=== PATIENT | male | born 1995 | race African-American/Black ===

== ENCOUNTER 2019-09-18 10:57 | Emergency (ER) | payer OTHER ==
--- NOTE | 2019-09-18 12:34 | RAD REPORT ---
EXAM DESCRIPTION: Chio Kat (2 Views)09/18/2019 12:23 pm CLINICAL HISTORY: Chest pain COMPARISON: None FINDINGS: The lungs appear clear of acute infiltrate. The heart is mildly enlarged IMPRESSION: No acute abnormalities displayed
[2019-09-18] MEDS ORDERED: KETOROLAC 30 MG/ML INJ ONE (13:03)
--- NOTE | 2019-09-18 14:20 | RAD REPORT ---
EXAM DESCRIPTION: CT - Thorax Wo Con - 09/18/2019 1:33 pm CLINICAL HISTORY: Chest pain status post fall COMPARISON: None TECHNIQUE: Computed axial tomography of the chest was obtained. Contrast was not requested. All CT scans are performed using dose optimization technique as appropriate and may include automated exposure control or mA/KV adjustment according to patient size. FINDINGS: The evaluation of mediastinum, savanah and vessels is limited secondary to lack of IV contras t administration. A mediastinal hematoma is not seen. A pulmonary contusion is not noted A pleural effusion is not present. A pericardial effusion is not seen Postsurgical changes involve the chest. The heart is mildly enlarged. The proximal ascending aorta measures approximately 4.9 centimeters an AP diameter IMPRESSION: No acute traumatic injury involving the chest seen 4.9 centimeter aneurysm ascending aorta
--- NOTE | 2019-09-18 15:22 | RAD REPORT ---
EXAM DESCRIPTION: CT - Angio Aorta For Dissection - 09/18/2019 3:05 pm CLINICAL HISTORY: eval aortachest pain, shortness of breath, abnormal aorta on noncontrast CT study COMPARISON: Noncontrast CT chest September 18 TECHNIQUE: Dynamically enhanced 3 mm thick images of the chest, abdomen, and upper pelvis were obtai marita during administration of approximately 150mL Isovue 370 IV contrast. Sagittal and coronal reconst ruction images were generated using MIP and reviewed. Exam utilizes a protocol to evaluate entire cou rse of the aorta. All CT scans are performed using dose optimization technique as appropriate and may include automated exposure control or mA/KV adjustment according to patient size. FINDINGS: The initial 4 cm of the aorta shows aneurysmal dilatation to 4.9 cm. No aortic valve leafl et abnormality seen. Outflow track to the valve is not abnormally stenotic. The remainder of the asce nding aorta to the arch is not dilated. Arch has a bovine configuration with no great vessel origin s tenosis. From aortic arch to bifurcation in the abdomen the remainder of the aorta shows no dilatatio n. There is no dissection or acute aortic finding. Pulmonary arteries enhance normally. No cardiomegaly, pericardial thickening or pericardial effusion. No mass or infiltrate in the lung parenchyma. No pleural thickening, pleural effusion or pneumothorax . No abnormal mediastinal or hilar mass or lymphadenopathy seen. No chest wall mass or abnormal axillar y lymphadenopathy. Celiac, SMA and renal arteries show no suspicious findings. Solid abdominal viscera and bowel show no significant findings. No mass or abnormal lymphadenopathy. No free air, free fluid or inflammatory stranding. No urinary bladder abnormality. IMPRESSION: Aneurysmal dilatation of the initial 4 cm of the ascending aorta to a maximum diameter o f 4.9 cm. No intimal flap, dissection or other abnormality. Aortic valve leaflets do not appear abnor mal. Remainder the aorta is unremarkable. The remainder of the chest abdomen and pelvis also without signi ficant finding. No other significant findings on chest, abdomen and upper pelvis examination.
--- NOTE | 2019-09-18 15:47 | ER ---
Nurse's Notes [facility] Name: Fausto Bell Jr Age: 24 yrs Sex: Male : 1995 Arrival Date: 09/18/2019 Time: 11:01 Bed 11 Private MD: Diagnosis: Fall on same level from slipping, tripping and stumbling with subsequent striking against other object;Aortic aneurysm of unspecified site, without rupture;Essential (primary) hypertension Presentation: 09/18 11:18 Presenting complaint: Patient states: Fell at work and my left side hurt yesterday but jl7 it's getting worse, it hurts when I breathe in. Transition of care: patient was not received from another setting of care. Onset of symptoms was September 17, 2019. Risk Assessment: Do you want to hurt yourself or someone else? Patient reports no desire to harm self or others. Initial Sepsis Screen: Does the patient meet any 2 criteria? No. Patient's initial sepsis screen is negative. Does the patient have a suspected source of infection? No. Patient's initial sepsis screen is negative. Care prior to arrival: None. 11:18 Method Of Arrival: Ambulatory jl7 11:18 Acuity: AGNIESZKA 4 jl7 Triage Assessment: 11:20 General: Appears in no apparent distress. uncomfortable, Behavior is calm, cooperative, jl7 appropriate for age. Pain: Complains of pain in left side Pain currently is 5 out of 10 on a pain scale. Historical: - Allergies: 11:20 No Known Allergies; jl7 - Home Meds: 11:20 None [Active]; jl7 - PMHx: 11:20 Enlarged heart; jl7 - PSHx: 11:20 open heart sx at 6 mo old; jl7 - Immunization history:: Adult Immunizations not up to date. - Social history:: Smoking status: Patient uses tobacco products, smokes one-half pack cigarettes per day. - Ebola Screening: : No symptoms or risks identified at this time. Screenin:00 Abuse screen: Denies threats or abuse. Denies injuries from another. Nutritional ss screening: No deficits noted. Tuberculosis screening: No symptoms or risk factors identified. Fall Risk IV access (20 points). Total Lemons Fall Scale indicates No Risk (0-24 pts). Assessment: 12:40 General: See triage assessment. Neuro: Level of Consciousness is awake, alert, obeys commands. Cardiovascular: Patient's skin is warm and dry. Respiratory: Airway is patent Respiratory effort is even, unlabored, Respiratory pattern is regular, symmetrical. Derm: Skin is dry, Skin is normal, Skin temperature is warm. 14:00 Reassessment: Patient appears in no apparent distress at this time. No changes from ss previously documented assessment. Patient and/or family updated on plan of care and expected duration. Pain level reassessed. Patient is alert, oriented x 3, equal unlabored respirations, skin warm/dry/pink. 15:00 Reassessment: Patient appears in no apparent distress at this time. No changes from ss previously documented assessment. Patient and/or family updated on plan of care and expected duration. Pain level reassessed. Patient is alert, oriented x 3, equal unlabored respirations, skin warm/dry/pink. Vital Signs: 11:20 BP 140 / 82; Pulse 61; Resp 19 S; Temp 97.9(O); Pulse Ox 100% on R/A; Weight 81.65 kg jl7 (R); Height 5 ft. 8 in. (172.72 cm) (R); Pain 5/10; 15:54 BP 134 / 70; Pulse 54; Resp 16 S; Pulse Ox 100% on R/A; jl7 11:20 Body Mass Index 27.37 (81.65 kg, 172.72 cm) jl7 ED Course: 11:01 Patient arrived in ED. as 11:02 Nita Joshi FNP-C is [facility]. snw 11:02 Britton Patel MD is Attending Physician. snw 11:19 Triage completed. jl7 11:20 Arm band placed on right wrist. Patient placed in waiting room, Patient notified of jl7 wait time. 12:21 Chest Pa And Lat (2 Views) XRAY In Process Unspecified. EDMS 12:34 Emmie Lemon, RN is Primary Nurse. ca1 12:59 Salty Cota, SAVITA is Primary Nurse. jl7 13:00 Patient has correct armband on for positive identification. Call light in reach. ss 13:33 CT Chest Wo Con In Process Unspecified. EDMS 14:55 Inserted saline lock: 20 gauge in right antecubital area, using aseptic technique. ss 15:07 CT Aorta for Dissection In Process Unspecified. EDMS 15:39 Brandon Plummer MD is Referral Physician. snw 15:58 No provider procedures requiring assistance completed. IV discontinued, intact, ss bleeding controlled, No redness/swelling at site. Pressure dressing applied. Administered Medications: 13:39 Not Given (Patient Refused): TORadol 30 mg IM once ss 15:58 Drug: Norvasc 5 mg Route: PO; ss 15:58 Follow up: Response: Medication administered at discharge. Outcome: 15:45 Discharge ordered by . snw 15:58 Discharged to home ambulatory, with family. 15:58 Condition: good 15:58 Discharge instructions given to patient, family, Instructed on discharge instructions, follow up and referral plans. medication usage, Demonstrated understanding of instructions, follow-up care, medications, Prescriptions given X 1. 15:59 Patient left the ED. Signatures: Dispatcher [employer] EDWV Nita Joshi, INSIDE SALES PROFESSIONAL-C INSIDE SALES PROFESSIONAL-CsnMine Huffman Shelby, RN RN Salty Cota RN RN jl7 Emmie Lemon RN RN ca1
--- NOTE | 2019-09-18 15:47 | EDPHYS ---
Physician Documentation [facility] Name: Fausto Bell Jr Age: 24 yrs Sex: Male : 1995 Arrival Date: 09/18/2019 Time: 11:01 Bed 11 Private MD: ED Physician Britton Patel HPI: 09/18 13:21 This 24 yrs old Black Male presents to ER via Ambulatory with complaints of Rib Pain- snw fell yest. 13:21 Onset: The symptoms/episode began/occurred suddenly, yesterday. Associated signs and snw symptoms: Pertinent positives: chest pain. Modifying factors: The patient symptoms are alleviated by nothing, the patient symptoms are aggravated by movement. The patient has not experienced similar symptoms in the past. It is unknown whether or not the patient has recently seen a physician. yesterday pt was walking backward and tripped over a pipe and fell onto opening valve of tank at left lateral chest. Historical: - Allergies: 11:20 No Known Allergies; jl7 - Home Meds: 11:20 None [Active]; jl7 - PMHx: 11:20 Enlarged heart; jl7 - PSHx: 11:20 open heart sx at 6 mo old; jl7 - Immunization history:: Adult Immunizations not up to date. - Social history:: Smoking status: Patient uses tobacco products, smokes one-half pack cigarettes per day. - Ebola Screening: : No symptoms or risks identified at this time. ROS: 13:21 Constitutional: Negative for fever, chills, and weight loss, Eyes: Negative for injury, snw pain, redness, and discharge, ENT: Negative for injury, pain, and discharge, Neck: Negative for injury, pain, and swelling, Cardiovascular: Negative for chest pain, palpitations, and edema, Respiratory: Negative for shortness of breath, cough, wheezing, + left lateral pleuritic chest pain, Abdomen/GI: Negative for abdominal pain, nausea, vomiting, diarrhea, and constipation, Back: Negative for injury and pain, : Negative for injury, bleeding, discharge, and swelling, MS/Extremity: Negative for injury and deformity, Skin: Negative for injury, rash, and discoloration, Neuro: Negative for headache, weakness, numbness, tingling, and seizure, Psych: Negative for depression, anxiety, suicide ideation, homicidal ideation, and hallucinations. Exam: 13:20 Constitutional: This is a well developed, well nourished patient who is awake, alert, snw and in no acute distress. Head/Face: Normocephalic, atraumatic. Eyes: Pupils equal round and reactive to light, extra-ocular motions intact. Lids and lashes normal. Conjunctiva and sclera are non-icteric and not injected. Cornea within normal limits. Periorbital areas with no swelling, redness, or edema. ENT: Nares patent. No nasal discharge, no septal abnormalities noted. Tympanic membranes are normal and external auditory canals are clear. Oropharynx with no redness, swelling, or masses, exudates, or evidence of obstruction, uvula midline. Mucous membranes moist. Neck: Trachea midline, no thyromegaly or masses palpated, and no cervical lymphadenopathy. Supple, full range of motion without nuchal rigidity, or vertebral point tenderness. No Meningismus. Cardiovascular: Regular rate and rhythm with a normal S1 and S2. No gallops, murmurs, or rubs. Normal PMI, no JVD. No pulse deficits. Respiratory: Lungs have equal breath sounds bilaterally, clear to auscultation and percussion. No rales, rhonchi or wheezes noted. No increased work of breathing, no retractions or nasal flaring. Abdomen/GI: Soft, non-tender, with normal bowel sounds. No distension or tympany. No guarding or rebound. No evidence of tenderness throughout. Back: No spinal tenderness. No costovertebral tenderness. Full range of motion. Skin: Warm, dry with normal turgor. Normal color with no rashes, no lesions, and no evidence of cellulitis. MS/ Extremity: Pulses equal, no cyanosis. Neurovascular intact. Full, normal range of motion. Neuro: Awake and alert, GCS 15, oriented to person, place, time, and situation. Cranial nerves II-XII grossly intact. Motor strength 5/5 in all extremities. Sensory grossly intact. Cerebellar exam normal. Normal gait. Psych: Awake, alert, with orientation to person, place and time. Behavior, mood, and affect are within normal limits. 13:20 Chest/axilla: Inspection: normal, Palpation: crepitus, is not appreciated, tenderness, that is moderate, of the left lateral anterior chest. Vital Signs: 11:20 BP 140 / 82; Pulse 61; Resp 19 S; Temp 97.9(O); Pulse Ox 100% on R/A; Weight 81.65 kg jl7 (R); Height 5 ft. 8 in. (172.72 cm) (R); Pain 5/10; 15:54 BP 134 / 70; Pulse 54; Resp 16 S; Pulse Ox 100% on R/A; jl7 11:20 Body Mass Index 27.37 (81.65 kg, 172.72 cm) 7 MDM: 12:48 Patient medically screened. og 15:38 Data reviewed: vital signs, nurses notes. Data interpreted: Pulse oximetry: on room air snw is 100 %. Interpretation: normal. Counseling: I had a detailed discussion with the patient and/or guardian regarding: the historical points, exam findings, and any diagnostic results supporting the discharge/admit diagnosis, the presence of at least one elevated blood pressure reading (>120/80) during this emergency department visit, radiology results, the need for outpatient follow up, to return to the emergency department if symptoms worsen or persist or if there are any questions or concerns that arise at home. Special discussion: Based on the patient's history, exam, and Dx evaluation, there is no indication for emergent intervention or inpatient Tx. It is understood by the patient/guardian that if the Sx's persist or worsen they need to return immediately for re-evaluation. I have referred the patient to see his PCP for further evaluation of high blood pressure. Based on the history and exam findings, there is no indication for further emergent testing or inpatient evaluation. I discussed with the patient/guardian the need to see the lidar analyst for further evaluation of the symptoms. I discussed with the patient/guardian the need to see the primary care provider for further evaluation of the symptoms. 09/18 11:30 Order name: Chest Pa And Lat (2 Views) XRAY; Complete Time: 12:51 snw 09/18 12:58 Order name: CT Chest Wo Con; Complete Time: 14:39 snw 09/18 14:50 Order name: CT Aorta for Dissection; Complete Time: 15:25 snw Administered Medications: 13:39 Not Given (Patient Refused): TORadol 30 mg IM once ss 15:58 Drug: Norvasc 5 mg Route: PO; ss 15:58 Follow up: Response: Medication administered at discharge. Disposition: 17:14 Co-signature as Attending Physician, Britton Patel MD I agree with the assessment and og plan of care. Disposition: 09/18/19 15:45 Discharged to Home. Impression: Fall on same level from slipping, tripping and stumbling with subsequent striking against other object, Aortic aneurysm of unspecified site, without rupture, Essential (primary) hypertension. - Condition is Stable. - Discharge Instructions: Hypertension, How to Take Your Blood Pressure, [id number], Managing Your Hypertension, Form - Blood Pressure Record Sheet. - Prescriptions for Norvasc 5 mg Oral Tablet - take 1 tablet by ORAL route once daily; 20 tablet. - Work release form, Medication Reconciliation Form, Thank You Letter, Antibiotic Education, Prescription Opioid Use form. - Follow up: Emergency Department; When: As needed; Reason: Worsening of condition. Follow up: Brandon Plummer MD; When: 1 week; Reason: Recheck today's complaints, Continuance of care. Signatures: Dispatcher [employer] EDLA Britton Patel MD MD cha Therrien, Shelly, REDUCTION FURNACE OPERATOR HELPER-C REDUCTION FURNACE OPERATOR HELPER-Csnw Hannah Cole RN RN ss Leal, Jahala, RN RN jl7 Corrections: (The following items were deleted from the chart) 15:59 15:45 09/18/2019 15:45 Discharged to Home. Impression: Fall on same level from ss slipping, tripping and stumbling with subsequent striking against other object; Aortic aneurysm of unspecified site, without rupture; Essential (primary) hypertension. Condition is Stable. Forms are Medication Reconciliation Form, Thank You Letter, Antibiotic Education, Prescription Opioid Use. Follow up: Emergency Department; When: As needed; Reason: Worsening of condition. Follow up: Brandon Plummer; When: 1 week; Reason: Recheck today's complaints, Continuance of care. snw
[2019-09-18] MEDS ORDERED: AMLODIPINE 5 MG TAB ONE (15:54)
[2019-09-18 16:09] VITALS: TEMP 97.9; O2SAT 100
[2019-09-18 16:11] VITALS: BP 134/70
== END 2019-09-18 15:59 | disposition home or self-care (01) ==
LOC: ER 10:57
DX: I71.9 Aortic aneurysm of unspecified site, without rupture (principal); I10 Essential (primary) hypertension; W01.198A Fall on same level from slipping, tripping and stumbling with subsequent striking against other object, initial encounter; Y93.89 Activity, other specified; Y92.89 Other specified places as the place of occurrence of the external cause; Y99.8 Other external cause status; F17.210 Nicotine dependence, cigarettes, uncomplicated
CPT/HCPCS: 71046; 71250; 71275; 74175; 99284

== ENCOUNTER 2021-04-22 04:03 | Emergency (ER) | payer OTHER ==
[2021-04-22] MEDS ORDERED: HYDROCODONE/APAP 5/325 MG TAB ONE (05:03)
--- NOTE | 2021-04-22 06:32 | EDPHYS ---
Physician Documentation [facility] Name: Fausto Bell Jr Age: 26 yrs Sex: Male : 1995 Arrival Date: 04/22/2021 Time: 04:06 Bed 17 Private MD: ED Physician Jero Bhandari HPI: 04/22 04:20 This 26 yrs old Black Male presents to ER via Wheelchair with complaints of Ankle mh7 Injury. 04:20 The patient presents with an injury. The complaints affect the left ankle. Onset: The mh7 symptoms/episode began/occurred today. Context: The problem was sustained on a street or driveway, resulted from a mis-step by the patient, stairs, The mechanism of injury is unknown. The patient is unable to bear weight. the patient is able to ambulate, with moderate difficulty. Associated signs and symptoms: Pertinent negatives: calf tenderness, fever, nausea, numbness, rash, tingling, vomiting, warmth, weakness. Modifying factors: The symptoms are alleviated by nothing, the symptoms are aggravated by weight bearing. Severity of symptoms: At their worst the symptoms were moderate, earlier today, in the emergency department the symptoms are unchanged. Historical: - Allergies: 04:34 No Known Allergies; em - PMHx: 04:34 Enlarged Heart; em - PSHx: 04:34 open heart surgery; em - Immunization history:: Adult Immunizations up to date. - Social history:: Smoking status: Patient denies any tobacco usage or history of. ROS: 04:20 Constitutional: Negative for fever, chills, and weight loss, Eyes: Negative for injury, mh7 pain, redness, and discharge, ENT: Negative for injury, pain, and discharge, Neck: Negative for injury, pain, and swelling, Cardiovascular: Negative for chest pain, palpitations, and edema, Respiratory: Negative for shortness of breath, cough, wheezing, and pleuritic chest pain, Abdomen/GI: Negative for abdominal pain, nausea, vomiting, diarrhea, and constipation, Back: Negative for injury and pain, : Negative for injury, bleeding, discharge, and swelling, Skin: Negative for injury, rash, and discoloration, Neuro: Negative for headache, weakness, numbness, tingling, and seizure, Psych: Negative for depression, anxiety, suicide ideation, homicidal ideation, and hallucinations, Allergy/Immunology: Negative for hives, rash, and allergies, Endocrine: Negative for neck swelling, polydipsia, polyuria, polyphagia, and marked weight changes, Hematologic/Lymphatic: Negative for swollen nodes, abnormal bleeding, and unusual bruising. Exam: 04:20 Constitutional: This is a well developed, well nourished patient who is awake, alert, mh7 and in no acute distress. Head/Face: Normocephalic, atraumatic. Skin: Warm, dry with normal turgor. Normal color with no rashes, no lesions, and no evidence of cellulitis. 04:20 Neuro: Awake and alert, GCS 15, oriented to person, place, time, and situation. Cranial nerves II-XII grossly intact. Motor strength 5/5 in all extremities. Sensory grossly intact. Cerebellar exam normal. Normal gait. Psych: Awake, alert, with orientation to person, place and time. Behavior, mood, and affect are within normal limits. 04:20 Musculoskeletal/extremity: Extremities: noted in the left ankle and left foot: pain, tenderness, ROM: limited active range of motion due to pain, in the left ankle and left foot, limited passive range of motion due to pain, in the left ankle and left foot, Circulation is intact in all extremities. Sensation intact. Compartment Syndrome exam of affected extremity: is normal. no numbness, no tingling, no sensation deficit, no palor, no weak pulses, Joints: the left ankle displays painful range of motion, tenderness, Weight bearing: is unable to bear weight, Tendon exam: specific tendon testing normal through active and passive range of motion Vital Signs: 04:32 BP 118 / 62; Pulse 62; Resp 16; Temp 98.7; Pulse Ox 98% on R/A; Weight 88.45 kg; Height em 5 ft. 9 in. (175.26 cm); Pain 8/10; 04:32 Body Mass Index 28.80 (88.45 kg, 175.26 cm) em Procedures: 06:28 Splinting: Splint applied to left ankle and left foot using Orthoglass splint, applied mh7 by tech. nurse. Examined by me, post splint application: neurovascular intact, 2+ distal pulses palpable, brisk capillary refill noted, Patient tolerated well. MDM: 06:28 Differential diagnosis: fracture, sprain, arthritis. Data reviewed: vital signs, nurses [facility] notes, radiologic studies, plain films. Counseling: I had a detailed discussion with the patient and/or guardian regarding: the historical points, exam findings, and any diagnostic results supporting the discharge/admit diagnosis, radiology results, the need for outpatient follow up, a orthopedic surgeon, to return to the emergency department if symptoms worsen or persist or if there are any questions or concerns that arise at home. Response to treatment: the patient's symptoms have markedly improved after treatment. 06:31 Patient medically screened. [facility] 04/22 05:20 Order name: Foot Left 3 View [facility] 04/22 05:20 Order name: Ankle Left 3 View [facility] 04/22 06:03 Order name: Splint - Ankle: Posterior; Complete Time: 06:26 [facility] 04/22 06:03 Order name: Crutches; Complete Time: : [facility] Administered Medications: 04:41 Drug: [place] (HYDROcodone-acetaminophen) 5 mg-325 mg 1 tabs Route: PO; em 06:10 Follow up: Response: No adverse reaction; Marked relief of symptoms; Pain is decreased em Disposition Summary: 04/22/21 06:31 Discharge Ordered Location: Home [facility] Problem: new [facility] Symptoms: have improved [facility] Condition: Stable [facility] Diagnosis - Ankle Sprain, Left 7 - Foot Sprain, Left [facility] Followup: [facility] - With: Private Physician - When: 1 - 2 days - Reason: Worsening of condition, Recheck today's complaints, Continuance of care, Re-evaluation by your physician Followup: [facility] - With: Kervin Raya MD - When: 2 - 3 days - Reason: Worsening of condition, Recheck today's complaints Followup: [facility] - With: Jesus Beach DPM - When: 2 - 3 days - Reason: Worsening of condition, Recheck today's complaints Discharge Instructions: - Discharge Summary Sheet [facility] - Foot Sprain [facility] - Ankle Sprain, [id number] [facility] Forms: - Medication Reconciliation Form [facility] - Thank You Letter [facility] - Antibiotic Education [facility] - Prescription Opioid Use [facility] Prescriptions: - ketorolac 10 mg Oral tablet - take 1 tablet by ORAL route every 6 hours As needed not to exceed 40 mg in [facility] 24hrs; 12 tablet; Refills: 0, Product Selection Permitted Signatures: Dispatcher [facility] Wisam Dela Cruz, SAVITA RN Jero Gallego MD MD mh7
--- NOTE | 2021-04-22 06:32 | ER ---
Nurse's Notes [facility] Name: Fausto Bell Jr Age: 26 yrs Sex: Male : 1995 Arrival Date: 04/22/2021 Time: 04:06 Bed 17 Private MD: Diagnosis: Ankle Sprain, Left;Foot Sprain, Left Presentation: 04/22 04:32 Chief complaint: Patient states: ws drunk and fell down 2 steps, reports pain in the em left ankle, denies other injuries. Coronavirus screen: Client denies travel out of the [place] in the last 14 days. Ebola Screen: Patient negative for fever greater than or equal to 101.5 degrees Fahrenheit, and additional compatible Ebola Virus Disease symptoms Patient denies exposure to infectious person. Patient denies travel to an Ebola-affected area in the 21 days before illness onset. No symptoms or risks identified at this time. Initial Sepsis Screen: Does the patient meet any 2 criteria? No. Patient's initial sepsis screen is negative. Does the patient have a suspected source of infection? No. Patient's initial sepsis screen is negative. Risk Assessment: Do you want to hurt yourself or someone else? Patient reports no desire to harm self or others. Onset of symptoms was April 22, 2021. 04:32 Method Of Arrival: Wheelchair em 04:32 Acuity: AGNIESZKA 4 em Historical: - Allergies: 04:34 No Known Allergies; em - PMHx: 04:34 Enlarged Heart; em - PSHx: 04:34 open heart surgery; em - Immunization history:: Adult Immunizations up to date. - Social history:: Smoking status: Patient denies any tobacco usage or history of. Screenin:34 Abuse screen: Denies threats or abuse. Nutritional screening: No deficits noted. em Tuberculosis screening: No symptoms or risk factors identified. Fall Risk None identified. Assessment: 04:35 General: Appears in no apparent distress. comfortable, Behavior is calm, cooperative, em appropriate for age. Pain: Complains of pain in left lateral malleolus and left medial malleolus Pain currently is 8 out of 10 on a pain scale. Neuro: Level of Consciousness is awake, alert, obeys commands, Oriented to person, place, time, situation. Cardiovascular: Capillary refill < 3 seconds Patient's skin is warm and dry. Respiratory: Airway is patent Respiratory effort is even, unlabored, Respiratory pattern is regular, symmetrical. Derm: Skin is intact, is healthy with good turgor, Skin is pink, warm \T\ dry. Musculoskeletal: Circulation, motion, and sensation intact. Capillary refill < 3 seconds, Range of motion: limited in left ankle Swelling present in left lateral malleolus and left medial malleolus. 05:34 Reassessment: x-ray at bedside. em Vital Signs: 04:32 BP 118 / 62; Pulse 62; Resp 16; Temp 98.7; Pulse Ox 98% on R/A; Weight 88.45 kg; Height em 5 ft. 9 in. (175.26 cm); Pain 8/10; 04:32 Body Mass Index 28.80 (88.45 kg, 175.26 cm) em ED Course: 04:06 Patient arrived in ED. es 04:09 Jero Bhandari MD is Attending Physician. health system 04:23 Wisam Dlea Cruz, RN is Primary Nurse. em 04:34 Triage completed. em 04:34 Arm band placed on. em 04:34 Patient has correct armband on for positive identification. Bed in low position. Call em light in reach. Adult w/ patient. 04:34 Patient did not have IV access during this emergency room visit. em 05:41 Foot Left 3 View In Process Unspecified. EDMS 05:41 Ankle Left 3 View In Process Unspecified. EDMS 06:26 Crutch training done. Orthoglass splint: Posterior short lleg splint applied on left ds4 leg. 06:30 Kervin Raya MD is Referral Physician. 7 06:30 Jesus Beach DPM is Referral Physician. 7 06:30 No provider procedures requiring assistance completed. em Administered Medications: 04:41 Drug: [place] (HYDROcodone-acetaminophen) 5 mg-325 mg 1 tabs Route: PO; em 06:10 Follow up: Response: No adverse reaction; Marked relief of symptoms; Pain is decreased em Outcome: 06:31 Discharge ordered by . mh7 06:39 Discharged to home with crutches, with family. em 06:39 Condition: stable 06:39 Discharge instructions given to patient, family, Instructed on discharge instructions, follow up and referral plans. medication usage, crutch walking, Demonstrated understanding of instructions, follow-up care, medications, crutch walking, splint care, Prescriptions given X 1. 06:40 Patient left the ED. em Signatures: Dispatcher [employer] Mary Brown Edgar, RN RN em Swanson, Donovan ds4 Jero Bhandari MD MD mh7
[2021-04-22 06:45] VITALS: BP 118/62; TEMP 98.7; O2SAT 98
--- NOTE | 2021-04-22 06:45 | RAD REPORT ---
EXAM DESCRIPTION: RAD - Ankle Left 3 View - 04/22/2021 5:41 am CLINICAL HISTORY: PAIN COMPARISON: No comparisons FINDINGS: No fracture or malalignment of the left ankle. IMPRESSION: No left ankle fracture or malalignment.
--- NOTE | 2021-04-22 06:46 | RAD REPORT ---
EXAM DESCRIPTION: RAD - Foot Left 3 View - 04/22/2021 5:41 am CLINICAL HISTORY: PAIN COMPARISON: FOOT W OBLIQUES dated 10/26/2009 FINDINGS: No left foot fracture identified. No malalignment. No focal degenerative changes. IMPRESSION: No left foot fracture identified.
== END 2021-04-22 06:40 | disposition home or self-care (01) ==
LOC: ER 04:03
PROC: 2W3RX1Z Immobilization of Left Lower Leg using Splint (ICD-10-PCS; principal; 2021-04-22)
DX: S93.402A Sprain of unspecified ligament of left ankle, initial encounter (principal); S93.602A Unspecified sprain of left foot, initial encounter; X58.XXXA Exposure to other specified factors, initial encounter; Y93.01 Activity, walking, marching and hiking
CPT/HCPCS: 99284

== ENCOUNTER 2021-11-19 20:18 | Emergency (ER) | payer OTHER, SELFPAY ==
[2021-11-19] MEDS ORDERED: HYDROCODONE/CHLORPHEN 5 ML/OSYR ONE (21:11)
[2021-11-19] MEDS ORDERED: IBUPROFEN 400 MG TAB ONE (21:12)
[2021-11-19 22:21] LABS: SARS-COV-2 RT PCR NEGATIVE (NEGATIVE)
--- NOTE | 2021-11-19 23:04 | ER ---
Nurse's Notes [facility] Name: Fausto Bell Jr Age: 26 yrs Sex: Male : 1995 Arrival Date: 11/19/2021 Time: 20:24 Bed 15 Private MD: Diagnosis: Acute upper respiratory infection, unspecified Presentation: 11/19 20:37 Chief complaint: Patient states: fever, cough, weakness, vomiting X 1 day. Coronavirus ld1 screen: Client presents with at least one sign or symptom that may indicate coronavirus-19. Standard/surgical mask placed on the client. Ebola Screen: No symptoms or risks identified at this time. Initial Sepsis Screen: Does the patient meet any 2 criteria? No. Patient's initial sepsis screen is negative. Does the patient have a suspected source of infection? No. Patient's initial sepsis screen is negative. Risk Assessment: Do you want to hurt yourself or someone else? Patient reports no desire to harm self or others. Onset of symptoms was November 19, 2021. 20:37 Method Of Arrival: Ambulatory ld1 20:37 Acuity: AGNIESZKA 4 ld1 Triage Assessment: 20:38 General: Appears in no apparent distress. comfortable, Behavior is calm, cooperative, ld1 appropriate for age. Pain: Denies pain. EENT: Reports pain in uvula. Neuro: Level of Consciousness is awake, alert, obeys commands, Oriented to person, place, time, situation. Cardiovascular: Capillary refill < 3 seconds Patient's skin is warm and dry. Respiratory: Airway is patent Respiratory effort is even, unlabored. GI: Abdomen is round non-distended, Reports nausea, vomiting. Historical: - Allergies: 20:38 No Known Allergies; ld1 - Home Meds: 20:38 None [Active]; ld1 - PMHx: 20:38 Enlarged Heart; ld1 - PSHx: 20:38 open heart surgery; ld1 - Immunization history:: Adult Immunizations not up to date, Client reports having NOT received the Covid vaccine. - Social history:: Smoking status: Patient reports the use of cigarette tobacco products, smokes one-half pack cigarettes per day, Patient uses alcohol, occasionally. street drugs, marijuana. Screenin:14 Abuse screen: Denies threats or abuse. Denies injuries from another. Nutritional lg3 screening: No deficits noted. Tuberculosis screening: No symptoms or risk factors identified. Fall Risk None identified. Assessment: 21:14 General: Appears in no apparent distress. comfortable, Behavior is calm, cooperative. lg3 Pain: Complains of pain in throat Is continuous. Neuro: No deficits noted. Level of Consciousness is awake, alert, obeys commands, Oriented to person, place, time, situation. Cardiovascular: No deficits noted. Capillary refill < 3 seconds JVD is absent Patient's skin is warm and dry. Respiratory: No deficits noted. Reports cough that is dry, persistent Airway is patent Trachea midline Respiratory effort is even, unlabored, Respiratory pattern is regular, symmetrical. GI: No deficits noted. No signs and/or symptoms were reported involving the gastrointestinal system. Abdomen is round non-distended. : No deficits noted. No signs and/or symptoms were reported regarding the genitourinary system. EENT: No deficits noted. Oral mucosa is moist. Throat is reddened. Derm: No deficits noted. No signs and/or symptoms reported regarding the dermatologic system. Skin is intact, is healthy with good turgor, Skin is dry. Musculoskeletal: No deficits noted. No signs and/or symptoms reported regarding the musculoskeletal system. Circulation, motion, and sensation intact. Range of motion: intact in all extremities. 21:57 Reassessment: Patient appears in no apparent distress at this time. No changes from lg3 previously documented assessment. Patient and/or family updated on plan of care and expected duration. Pain level reassessed. Patient is alert, oriented x 3, equal unlabored respirations, skin warm/dry/pink. Vital Signs: 20:37 BP 131 / 75; Pulse 107; Resp 18; Temp 102.4; Pulse Ox 96% on R/A; Weight 99.79 kg; ld1 Height 5 ft. 8 in. (172.72 cm); Pain 0/10; 22:38 BP 130 / 73; Pulse 88; Resp 18 S; Temp 99.5(O); Pulse Ox 100% on R/A; lg3 20:37 Body Mass Index 33.45 (99.79 kg, 172.72 cm) ld1 ED Course: 20:24 Patient arrived in ED. wm 20:38 Triage completed. ld1 20:38 Arm band placed on right wrist. ld1 20:43 Yvan Jerome NP is PHCP. pm1 20:43 Rodolfo Zhong MD is Attending Physician. pm1 20:46 Donna Oro, RN is Primary Nurse. lg3 21:13 Strep Sent. lg3 21:13 COVID-19/FLU A+B (Document "Date of Onset" if Symptomatic) Sent. lg3 21:14 Patient has correct armband on for positive identification. Bed in low position. Call lg3 light in reach. Side rails up X 1. 21:55 Throat Culture Sent. lg3 22:42 No provider procedures requiring assistance completed. Patient did not have IV access lg3 during this emergency room visit. Administered Medications: 21:12 Drug: Ibuprofen 800 mg Route: PO; lg3 21:12 Follow up: Response: No adverse reaction lg3 21:13 Drug: Tussionex Pennkinetic ER (chlorpheniramine-hydrocodone) Suspension 5 ml Route: PO;lg3 21:13 Follow up: Response: No adverse reaction lg3 Outcome: 23:04 Discharge ordered by MD. pm1 23:16 Discharged to home ambulatory, with family. lg3 23:16 Condition: stable 23:16 Discharge instructions given to patient, Instructed on discharge instructions, follow up and referral plans. medication usage, Prescriptions given X 1. 23:27 Patient left the ED. lg3 Signatures: Yvan Jerome NP BANKING SERVICES ADVISOR pm1 Donna Oro, RN RN lg3 Amparo Jenkins RN RN ld1 Betzy Brownlee Corrections: (The following items were deleted from the chart) 22:42 22:38 BP 130 / 73; Pulse 84bpm; Resp 18bpm; Spontaneous; Pulse Ox 100% RA; Temp 99.5F lg3 Oral; lg3
--- NOTE | 2021-11-19 23:04 | EDPHYS ---
Physician Documentation [facility] Name: Fausto Bell Jr Age: 26 yrs Sex: Male : 1995 Arrival Date: 11/19/2021 Time: 20:24 Bed 15 Private MD: ED Physician Rodolfo Zhong HPI: 11/19 21:05 This 26 yrs old Black Male presents to ER via Ambulatory with complaints of Cough, pm1 Fever, Vomiting, General Weakness. 21:05 The patient or guardian reports cough, with productive sputum, that is yellow. pm1 21:05 Onset: The symptoms/episode began/occurred today. Severity of symptoms: in the pm1 emergency department the symptoms are unchanged. Modifying factors: The symptoms are alleviated by nothing, the symptoms are aggravated by nothing. Associated signs and symptoms: Pertinent positives: fever, sore throat, post-tussive vomiting, Pertinent negatives: chest pain, diarrhea, ear ache, shortness of breath. The patient has not experienced similar symptoms in the past. The patient has not recently seen a physician. Historical: - Allergies: 20:38 No Known Allergies; ld1 - Home Meds: 20:38 None [Active]; ld1 - PMHx: 20:38 Enlarged Heart; ld1 - PSHx: 20:38 open heart surgery; ld1 - Immunization history:: Adult Immunizations not up to date, Client reports having NOT received the Covid vaccine. - Social history:: Smoking status: Patient reports the use of cigarette tobacco products, smokes one-half pack cigarettes per day, Patient uses alcohol, occasionally. street drugs, marijuana. ROS: 21:05 Eyes: Negative for injury, pain, redness, and discharge, ENT: Negative for injury, pm1 pain, and discharge, Cardiovascular: Negative for chest pain, palpitations, and edema. 21:05 Back: Negative for injury and pain, MS/Extremity: Negative for injury and deformity, Skin: Negative for injury, rash, and discoloration, Neuro: Negative for headache, weakness, numbness, tingling, and seizure. 21:05 Constitutional: Positive for body aches, fever, Negative for poor PO intake. 21:05 Respiratory: Positive for cough, Negative for shortness of breath. 21:05 Abdomen/GI: Positive for post-tussive vomit x 4, Negative for abdominal pain, diarrhea. 21:05 All other systems are negative. Exam: 21:05 Constitutional: This is a well developed, well nourished patient who is awake, alert, pm1 and in no acute distress. Head/Face: Normocephalic, atraumatic. 21:05 Skin: Warm, dry with normal turgor. Normal color with no rashes, no lesions, and no evidence of cellulitis. MS/ Extremity: Pulses equal, no cyanosis. Neurovascular intact. Full, normal range of motion. 21:05 Eyes: Exam is negative for acute changes, Extraocular movements: no acute changes, Conjunctiva: no acute changes, no injection. 21:05 ENT: Posterior pharynx: Tonsils: bilaterally enlarged, with erythema, no exudate, no ulcerations, peritonsillar mass, is not appreciated. 21:05 Cardiovascular: Exam negative for acute changes, Rate: tachycardic, Rhythm: regular, Pulses: no pulse deficits are appreciated. 21:05 Respiratory: Exam negative for acute changes, respiratory distress, shortness of breath, Breath sounds: are clear throughout. 21:05 Abdomen/GI: Exam negative for Inspection: abdomen appears normal, Palpation: abdomen is soft and non-tender, in all quadrants. 21:05 Neuro: Exam negative for acute changes, Orientation: is normal, Mentation: is normal, Motor: is normal, moves all fours. Vital Signs: 20:37 BP 131 / 75; Pulse 107; Resp 18; Temp 102.4; Pulse Ox 96% on R/A; Weight 99.79 kg; ld1 Height 5 ft. 8 in. (172.72 cm); Pain 0/10; 22:38 BP 130 / 73; Pulse 88; Resp 18 S; Temp 99.5(O); Pulse Ox 100% on R/A; lg3 20:37 Body Mass Index 33.45 (99.79 kg, 172.72 cm) ld1 MDM: 20:56 Patient medically screened. pm1 21:08 Differential Diagnosis: Influenza Upper Respiratory Infection Pharyngitis Viral pm1 Syndrome Pneumonia Other covid. Data reviewed: vital signs. Data interpreted: Pulse oximetry: on room air is 96 %. Interpretation: normal. 23:03 Counseling: I had a detailed discussion with the patient and/or guardian regarding: the pm1 historical points, exam findings, and any diagnostic results supporting the discharge/admit diagnosis, lab results, the need for outpatient follow up, to return to the emergency department if symptoms worsen or persist or if there are any questions or concerns that arise at home. 23:06 ED course: [place] reviewed. pm1 11/19 20:59 Order name: COVID-19/FLU A+B (Document "Date of Onset" if Symptomatic); Complete Time: pm1 22:30 11/19 21:04 Order name: Strep; Complete Time: 22:30 pm1 11/19 21:47 Order name: Throat Culture EDMS Administered Medications: 21:12 Drug: Ibuprofen 800 mg Route: PO; lg3 21:12 Follow up: Response: No adverse reaction lg3 21:13 Drug: Tussionex Pennkinetic ER (chlorpheniramine-hydrocodone) Suspension 5 ml Route: PO;lg3 21:13 Follow up: Response: No adverse reaction lg3 Disposition: 11/20 06:23 Co-signature as Attending Physician, Rodolfo Zhong MD I agree with the assessment and sp3 plan of care. Disposition Summary: 11/19/21 23:04 Discharge Ordered Location: Home pm1 Problem: new pm1 Symptoms: have improved pm1 Condition: Stable pm1 Diagnosis - Acute upper respiratory infection, unspecified pm1 Followup: pm1 - With: Emergency Department - When: As needed - Reason: Worsening of condition Followup: pm1 - With: Private Physician - When: 2 - 3 days - Reason: Recheck today's complaints, Continuance of care, Re-evaluation by your physician Discharge Instructions: - Upper Respiratory Infection, Adult pm1 - Discharge Summary Sheet cs9 Forms: - Medication Reconciliation Form pm1 - Thank You Letter pm1 - Antibiotic Education pm1 - Work release form cs9 - Prescription Opioid Use pm1 Prescriptions: - Guaifenesin AC 10-100 mg/5 mL Oral Liquid - take 10 milliliters by ORAL route every 4 hours As needed; 240 milliliter; pm1 Refills: 0, Product Selection Permitted Signatures: Dispatcher [employer] EDMS Yvan Jerome NP BANK COURIER pm1 Donna Oro RN RN lg3 Amparo Jenkins RN RN ld1 Rodolfo Zhong MD MD sp3
[2021-11-19 23:34] VITALS: BP 130/73; TEMP 99.5; O2SAT 100
== END 2021-11-19 23:27 | disposition home or self-care (01) ==
LOC: ER 20:18
DX: J06.9 Acute upper respiratory infection, unspecified (principal); F17.210 Nicotine dependence, cigarettes, uncomplicated; Z20.822 Contact with and (suspected) exposure to COVID-19
CPT/HCPCS: 0240U; 87070; 87081; 99283

== ENCOUNTER 2021-11-20 15:57 | Emergency (ER) | payer SELFPAY ==
[2021-11-20] MEDS ORDERED: IBUPROFEN 200 MG TAB PO ONE (16:50)
[2021-11-20] MEDS ORDERED: ONDANSETRON 4 MG/2 ML VIAL ONE (16:50)
[2021-11-20] MEDS ORDERED: NA CHLORIDE 0.9% 1,000 ML ONE (16:50)
[2021-11-20] MEDS ORDERED: IBUPROFEN 400 MG TAB ONE (16:50)
[2021-11-20] MEDS ORDERED: PROMETHAZINE INJ 25 MG/ML AMP ONE (18:35)
--- NOTE | 2021-11-20 18:39 | EDPHYS ---
Physician Documentation [facility] Name: Fausto Bell Jr Age: 26 yrs Sex: Male : 1995 Arrival Date: 11/20/2021 Time: 15:58 Bed 11 Private MD: ED Physician Amol Palacios HPI: 11/20 16:24 This 26 yrs old Black Male presents to ER via Ambulatory with complaints of Fever, Sore pm1 Throat, bodyaches. 16:24 The patient reports fever, not measured (subjective). Onset: The symptoms/episode pm1 began/occurred 2 day(s) ago. Modifying factors: there are no obvious modifying factors. Associated signs and symptoms: Pertinent positives: nausea, vomiting, Pertinent negatives: abdominal pain, diarrhea. Severity of symptoms: in the emergency department the symptoms are unchanged. The patient has not experienced similar symptoms in the past. The patient has been recently seen at the [facility] Emergency Department, yesterday, for similar complaints labs were performed. Historical: - Allergies: 16:05 No Known Allergies; ll1 - PMHx: 16:05 Enlarged Heart; ll1 - PSHx: 16:05 open heart surgery; ll1 - Immunization history:: Client reports having NOT received the Covid vaccine. - Social history:: Smoking status: Patient reports the use of cigarette tobacco products, smokes one-half pack cigarettes per day. ROS: 16:24 MS/Extremity: Negative for injury and deformity, Skin: Negative for injury, rash, and pm1 discoloration, Neuro: Negative for headache, weakness, numbness, tingling, and seizure. 16:24 Cardiovascular: Negative for chest pain, palpitations, and edema, Respiratory: Negative for shortness of breath, cough, wheezing, and pleuritic chest pain. 16:24 ENT: Positive for sore throat, Negative for ear pain. 16:24 Abdomen/GI: Positive for nausea and vomiting, Negative for abdominal pain, diarrhea. 16:24 All other systems are negative. 16:24 Constitutional: Positive for body aches, fever. pm1 Exam: 16:24 Constitutional: This is a well developed, well nourished patient who is awake, alert, pm1 and in no acute distress. Head/Face: Normocephalic, atraumatic. 16:24 Skin: Warm, dry with normal turgor. Normal color with no rashes, no lesions, and no evidence of cellulitis. MS/ Extremity: Pulses equal, no cyanosis. Neurovascular intact. Full, normal range of motion. 16:24 ENT: Mouth: no acute changes, Lips: normal, moist, Oral mucosa: normal, pink and intact, moist, Posterior pharynx: Airway: no evidence of obstruction, Tonsils: bilaterally enlarged, with erythema, no exudate, no ulcerations, erythema, that is mild, peritonsillar mass, is not appreciated, negative for stridor. 16:24 Cardiovascular: Exam negative for acute changes, Rate: normal, Rhythm: regular, Pulses: no pulse deficits are appreciated, Heart sounds: normal, normal S1and S2. 16:24 Respiratory: Exam negative for acute changes, respiratory distress, shortness of breath, Breath sounds: are clear throughout. 16:24 Abdomen/GI: Inspection: abdomen appears normal, Palpation: abdomen is soft and non-tender, in all quadrants. 16:24 Neuro: Exam negative for acute changes, Orientation: is normal, Mentation: is normal, Motor: is normal, moves all fours. Vital Signs: 16:03 BP 122 / 64; Pulse 83; Resp 17; Temp 100.1; Pulse Ox 95% ; Weight 99.79 kg; Height 5 ll1 ft. 8 in. (172.72 cm); Pain 4/10; 16:03 Body Mass Index 33.45 (99.79 kg, 172.72 cm) ll1 MDM: 16:21 Patient medically screened. pm1 16:24 Data reviewed: vital signs. Data interpreted: Pulse oximetry: on room air is 95 %. pm1 Interpretation: normal. 16:24 ED course: Patient does not want repeat covid or flu swab. Pending strep culture from pm1 swab yesterday. 18:37 Counseling: I had a detailed discussion with the patient and/or guardian regarding: the pm1 historical points, exam findings, and any diagnostic results supporting the discharge/admit diagnosis, the need for outpatient follow up, to return to the emergency department if symptoms worsen or persist or if there are any questions or concerns that arise at home. 18:53 ED course: Reports improvement with Phenergan. Will discharge home with Phenergan pm1 instead of zofran. 11/20 16:23 Order name: IV Saline Lock; Complete Time: 16:46 pm1 Administered Medications: 16:23 CANCELLED (Physician Discretion): Ondansetron 4 mg PO once; ODT pm1 17:03 Drug: NS 0.9% 1000 ml Route: IV; Rate: 1000 ml; Site: right antecubital; 5 17:03 Drug: Ibuprofen 600 mg Route: PO; 5 17:03 Drug: Zofran (Ondansetron) 4 mg Route: IVP; Site: right antecubital; 5 18:41 Drug: Phenergan (promethazine) 12.5 mg Route: IVP; Site: right antecubital; [facility] Disposition: 11/21 07:28 Co-signature as Attending Physician, Amol Palacios MD I agree with the assessment and rn plan of care. Attestation: The patient's history, exam findings, diagnostics, and a summary of any interventions or procedures was reviewed in detail with Yvan Jerome NP. Disposition Summary: 11/20/21 18:39 Discharge Ordered Location: Home pm1 Problem: new pm1 Symptoms: have improved pm1 Condition: Stable pm1 Diagnosis - Acute upper respiratory infection, unspecified pm1 Followup: pm1 - With: Emergency Department - When: As needed - Reason: Worsening of condition Followup: pm1 - With: Private Physician - When: 2 - 3 days - Reason: Recheck today's complaints, Continuance of care, Re-evaluation by your physician Discharge Instructions: - Discharge Summary Sheet pm1 - Pharyngitis pm1 - Upper Respiratory Infection, Adult pm1 Forms: - Work release form pm1 - Medication Reconciliation Form pm1 - Thank You Letter pm1 - Antibiotic Education pm1 - Prescription Opioid Use pm1 Prescriptions: - Zithromax Z-Beck 250 mg Oral Tablet - take 1 tablet by ORAL route as directed for 5 days Day 1 - take two (2) tablets pm1 one time. Day 2, 3, 4 , 5 take one (1) tablet once daily.; 6 tablet; Refills: 0, Product Selection Permitted - promethazine 25 mg Oral Tablet - take 1 tablet by ORAL route every 6 hours As needed; 20 tablet; Refills: 0, pm1 Product Selection Permitted Signatures: Amol Palacios MD MD rn Marinas, Patrick, NP SENIOR USER EXPERIENCE ARCHITECT pm1 Betty Bojorquez RN RN 1 Luanne Anton RN RN [id number] Corrections: (The following items were deleted from the chart) 11/20 16:23 16:22 Ondansetron 4 mg PO once; ODT ordered. pm1 pm1 11/21 01:26 11/20 16:24 Constitutional: Negative for fever, chills, and weight loss, pm1 Cardiovascular: Negative for chest pain, palpitations, and edema, Respiratory: Negative for shortness of breath, cough, wheezing, and pleuritic chest pain, pm1
--- NOTE | 2021-11-20 18:39 | ER ---
Nurse's Notes [facility] Name: Fausto Bell Jr Age: 26 yrs Sex: Male : 1995 Arrival Date: 11/20/2021 Time: 15:58 Bed 11 Private MD: Diagnosis: Acute upper respiratory infection, unspecified Presentation: 11/20 16:03 Chief complaint: Patient states: N/V still since his visit here yesterday. Swabs were ll1 negative yesterday. + fever. All symptoms started Saturday. Coronavirus screen: Vaccine status: Patient reports being unvaccinated. Client denies travel out of the [place] in the last 14 days. chills, congestion, cough unrelated to allergies, difficulty breathing, fatigue, fever, headache, muscle pain, nausea, shaking with chills, shortness of breath, sore throat, vomiting. Client presents with at least one sign or symptom that may indicate coronavirus-19. Standard/surgical mask placed on the client. Ebola Screen: Patient denies travel to an Ebola-affected area in the 21 days before illness onset. Initial Sepsis Screen: Does the patient meet any 2 criteria? No. Patient's initial sepsis screen is negative. Does the patient have a suspected source of infection? Yes: Productive cough/pneumonia. Risk Assessment: Do you want to hurt yourself or someone else? Patient reports no desire to harm self or others. Onset of symptoms was November 18, 2021. 16:03 Method Of Arrival: Ambulatory ll1 16:03 Acuity: AGNIESZKA 3 ll1 Historical: - Allergies: 16:05 No Known Allergies; ll1 - PMHx: 16:05 Enlarged Heart; ll1 - PSHx: 16:05 open heart surgery; ll1 - Immunization history:: Client reports having NOT received the Covid vaccine. - Social history:: Smoking status: Patient reports the use of cigarette tobacco products, smokes one-half pack cigarettes per day. Vital Signs: 16:03 BP 122 / 64; Pulse 83; Resp 17; Temp 100.1; Pulse Ox 95% ; Weight 99.79 kg; Height 5 ll1 ft. 8 in. (172.72 cm); Pain 4/10; 16:03 Body Mass Index 33.45 (99.79 kg, 172.72 cm) ll1 ED Course: 15:58 Patient arrived in ED. am2 16:05 Triage completed. ll1 16:06 Arm band placed on Patient placed in an exam room, on a stretcher. ll1 16:10 Luanne Anton, RN is Primary Nurse. 5 16:12 Yvan Jerome NP is PHCP. pm1 16:12 Amol Palacios MD is Attending Physician. pm1 Administered Medications: 16:23 CANCELLED (Physician Discretion): Ondansetron 4 mg PO once; ODT pm1 17:03 Drug: NS 0.9% 1000 ml Route: IV; Rate: 1000 ml; Site: right antecubital; 5 17:03 Drug: Ibuprofen 600 mg Route: PO; 5 17:03 Drug: Zofran (Ondansetron) 4 mg Route: IVP; Site: right antecubital; 5 18:41 Drug: Phenergan (promethazine) 12.5 mg Route: IVP; Site: right antecubital; [facility] Outcome: 18:39 Discharge ordered by MD. pm1 18:54 Patient left the ED. [facility] Signatures: Yvan Jerome NP MANAGER SPECIAL EVENTS pm1 Elizabeth Connor am2 Betty Bojorquez RN RN 1 Luanne Anton, SAVITA RN [facility]
[2021-11-20 20:04] VITALS: BP 122/64; TEMP 100.1; O2SAT 95
== END 2021-11-20 18:54 | disposition home or self-care (01) ==
LOC: ER 15:57
DX: J06.9 Acute upper respiratory infection, unspecified (principal); F17.210 Nicotine dependence, cigarettes, uncomplicated
CPT/HCPCS: 96374; 96375; 99282; J2405; J2550; J7030